=== PATIENT | female | born 1930 | race Caucasian/White ===

== ENCOUNTER 2017-02-01 18:28 | Inpatient (IN) | payer OTHER ==
[~2017-02-01] VITALS: Ht 152.4 cm; Wt 61.2 kg
--- NOTE | ~2017-02-01 | 2DMMODE ---
[facility] [address] [place] [address] 2 D/M-MODE ECHOCARDIOGRAM Name: WES HAGAN I Room #: 205-P [facility] IN .R.#: [id number] Admission: 02/01/17 Attend Phys: Ok Bolaños MD Discharge: Date of : 34 Date of Service: 02/04/17 1304 Report #: [id number] THIS REPORT FOR: //name// APPROVED REPORT Study performed: 02/04/2017 11:03:03 EXAM: Comprehensive 2D, Doppler, and color-flow Echocardiogram Patient Location: Echo lab Room #: [facility] Status: routine BSA: 1.59 HR: 62 bpm BP: 107/87 mmHg Other Information Study Quality: Adequate Indications Palpitations 2D Dimensions RVDd: 23.77 mm LVEF(%): 55.84 (>50%) IVSd: 11.50 (7-11mm) LVOT Diam: 18.08 (18-24mm) LVDd: 39.85 mm PWd: 11.84 (7-11mm) Ascending Ao: 30.09 (22-36mm) LVDs: 28.41 (25-40mm) Aortic Root: 28.68 mm IVC: 12.00 mm Martines's LVEF: 55.84 % Volumes Left Atrial Volume (Systole) Single Plane 4CH: 44.63 mL Single Plane 2CH: 61.71 mL LA ESV Index: 36.00 mL/m2 Aortic Valve AoV Peak Teofilo.: 2.77 m/s AO Peak Gr.: 30.74 mmHg LVOT Max P.69 mmHg AO Mean Gr.: 15.21 mmHg LVOT Mean P.25 mmHg AO V2 Mean: 1.82 m/s LVOT Max V: 1.08 m/s AO V2 VTI: 59.11 cm LVOT Mean V: 0.69 m/s RUFINO (VTI): 1.18 cm2 LVOT V1 VTI: 27.14 cm RUFINO Vmax: 1.00 cm2 AI Vmax: 3.94 m/s SV (LVOT): 69.65 mL AI [place]: 1.96 m/s2 [facility] [place] [address] 2 D/M-MODE ECHOCARDIOGRAM Name: HAGANWES I Room #: 205-P [facility] IN ..#: [id number] Admission: 02/01/17 Attend Phys: Ok Bolaños MD Discharge: Date of : 34 Date of Service: 02/04/17 1304 Report #: [id number] AI PHT: 584.90 ms Mitral Valve MV Peak Gr.: 13.17 mmHg MV Mean Gr.: 3.25 mmHg E/A Ratio: 0.5 MV Decel. Time: 416.80 ms MV E Max Teofilo.: 0.83 m/s MV A Teofilo.: 1.65 m/s MV Max Teofilo.: 1.81 m/s MV Mean Teofilo.: 0.80 m/s MV VTI: 455.70 mm MVA VTI: 152.84 mm2 MV PHT: 120.87 ms IVRT: 143.02 ms Pulmonary Valve PV Peak Teofilo.: 0.96 m/s PV Peak Gr.: 3.69 mmHg TX End Vmax: 0.95 m/s Pulmonary Vein P Vein S: 0.80 m/s P Vein A: 0.31 m/s P Vein D: 0.33 m/s P Vein A Dur.: 110.7 msec P Vein S/D Ratio: 2.42 Tricuspid Valve TR Peak Teofilo.: 2.68 m/s TR Peak Gr.: 28.80 mmHg PA Pressure: 34.00 mmHg Left Ventricle The left ventricle is normal size. Mild concentric left ventricular hypertrophy. The left ventricular systolic function is normal. The left ventricular ejection fraction is within the normal range. LVEF is 60-65%. Grade I - abnormal relaxation pattern. Right Ventricle The right ventricle is normal size. The right ventricular systolic function is normal. Atria Left atrium is dilated. Right atrium is at the upper limits of normal. Aortic Valve The aortic valve is normal in structure. Aortic valve is calcified. Mild aortic regurgitation. Moderate aortic stenosis.1.[address] [address] 2 D/M-MODE ECHOCARDIOGRAM Name: WES HAGAN Bessy Room #: 205-P [facility] IN M.R.#: [id number] Admission: 02/01/17 Attend Phys: Ok Bolaños MD Discharge: Date of : 34 Date of Service: 02/04/17 1304 Report #: [id number] Mitral Valve The mitral valve is normal in structure. There is mitral annular calcification. Mild mitral regurgitation. No evidence of mitral valve stenosis. Tricuspid Valve The tricuspid valve is normal in structure. There is mild tricuspid regurgitation. Estimated PAP 34 mmHg. There is mild pulmonary hypertension. Pulmonic Valve The pulmonary valve is normal in structure. Mild pulmonic regurgitation. Great Vessels The aortic root is normal in size. IVC is normal in size and collapses >50% with inspiration. Pericardium There is no pericardial effusion. <Conclusion> The left ventricle is normal size. Mild concentric left ventricular hypertrophy. LVEF is 60-65%. Grade I - abnormal relaxation pattern. The right ventricle is normal size. Left atrium is dilated. Right atrium is at the upper limits of normal. The aortic valve is normal in structure. Aortic valve is calcified. Mild aortic regurgitation. Moderate aortic stenosis.1.2 cm2 The mitral valve is normal in structure. There is mitral annular calcification. Mild mitral regurgitation. There is mild tricuspid regurgitation. Estimated PAP 34 mmHg. There is mild pulmonary hypertension. There is no pericardial effusion. <ELECTRONICALLY SIGNED> By: Bran Fleming MD, FACC 02/04/17 1304 03 130 Bran Fleming MD, FACC /INF
[2017-02-01 18:05] VITALS: BP 117/69
[~2017-02-01 18:28] MED LIST: CHLORTHALIDONE25 MG PO; COLACE100 MG PO; LEVOTHYROXINE0.05 MG PO; MILK OF MA2400 MG/10 PO; TYLENOL325 MG PO
[2017-02-01 19:30] LABS: ABSOLUTE NEUTROPHILS 3.7 thou/uL (1.4-8.2); EOSINOPHILS 1.5 % (0.0-3.0); HEMATOCRIT 40.2 % (37.0-47.0); HEMOGLOBIN 13.5 gm/dL (12.0-15.0); LYMPHOCYTES 36.4 % (24.0-44.0); MANUAL DIFF NO; MCH 30.3 pg (26.0-34.0); MCHC 33.5 g/dL (28.0-37.0); MCV 90.5 fL (80.0-100.0); MONOCYTES 7.7 % (1.0-8.0); PLATELET COUNT 186 thou/uL (150-400); POLYS 53.4 % (36.0-66.0); RBC 4.44 mil/uL (4.20-5.00); RDW 14.3 % (10.5-14.5); WBC 6.9 thou/uL (4.0-11.0)
[2017-02-01 19:46] LABS: ALBUMIN 3.4 g/dL (3.4-5.0); ALKALINE PHOSPHATASE 54 U/L (46-116); ANION GAP 1 mmol/L (7-16); BUN 16 mg/dL (7-18); CALCIUM 9.2 mg/dL (8.5-10.1); CHLORIDE 107 mmol/L (98-107); CO2 33 mmol/L (21-32); CREATININE 0.9 mg/dL (0.6-1.0); GLUCOSE 98 mg/dL (74-106); POTASSIUM 4.1 mmol/L (3.5-5.1); SGOT 43 U/L (15-37); SGPT 53 U/L (30-65); SODIUM 141 mmol/L (136-145); TOTAL BILIRUBIN 0.6 mg/dL (<0.1-1.0); TOTAL PROTEIN 6.5 g/dL (6.4-8.2)
[2017-02-01 19:56] VITALS: BP 121/70
[2017-02-01 20:09] LABS: CHOLESTEROL 241 mg/dL (<200); HDL CHOLESTEROL 59 mg/dL (>40); LDL CHOLESTEROL 141 mg/dL (<100); TC:HDL 4.1 Ratio (Not establshd); TRIGLYCERIDE 207 mg/dL (<150); VLDL 41 mg/dL (<40)
[2017-02-02 00:49] VITALS: BP 94/57
[2017-02-02 04:10] VITALS: BP 115/56
[2017-02-02 07:45] VITALS: BP 116/59
[2017-02-02 11:30] VITALS: BP 142/66
[2017-02-02 15:45] VITALS: BP 130/54
[2017-02-02 20:28] VITALS: BP 147/71
[2017-02-03 04:15] VITALS: BP 122/48
[2017-02-03 07:25] VITALS: BP 141/73
[2017-02-03 12:20] VITALS: BP 140/63; BP 142/63
[2017-02-03 16:10] VITALS: BP 127/66
[2017-02-03 19:50] VITALS: BP 147/71
[2017-02-04 05:03] VITALS: BP 168/70
[2017-02-04 07:40] VITALS: BP 107/87
[2017-02-04 12:10] VITALS: BP 153/68
[2017-02-04 15:30] VITALS: BP 156/71
[2017-02-04 19:10] VITALS: BP 129/55
[2017-02-05 03:12] LABS: ABSOLUTE NEUTROPHILS 5.3 thou/uL (1.4-8.2); BASOPHILS 0.7 % (0.0-2.0); EOSINOPHILS 2.6 % (0.0-3.0); HEMOGLOBIN 13.7 gm/dL (12.0-15.0); LYMPHOCYTES 28.6 % (24.0-44.0); MCH 30.3 pg (26.0-34.0); MCHC 33.5 g/dL (28.0-37.0); MCV 90.4 fL (80.0-100.0); MONOCYTES 8.9 % (1.0-8.0); PLATELET COUNT 184 thou/uL (150-400); POLYS 59.2 % (36.0-66.0); RBC 4.53 mil/uL (4.20-5.00); RDW 13.7 % (10.5-14.5)
[2017-02-05 03:13] LABS: MANUAL DIFF NO
[2017-02-05 03:17] LABS: CALCIUM 9.4 mg/dL (8.5-10.1); POTASSIUM 4.2 mmol/L (3.5-5.1)
[2017-02-05 03:54] VITALS: BP 131/61
[2017-02-05 07:30] VITALS: BP 130/55
[2017-02-05] MEDS ORDERED: ASA5UEC PO (09:37)
[2017-02-05] MEDS ORDERED: LOPRESSOR25 PO (09:37)
[2017-02-05 10:29] VITALS: BP 130/55
== END 2017-02-05 11:18 | disposition home or self-care (01) | DRG 281 ==
LOC: 2N 18:28 → ENTRNSPT 02-05 10:49 → EDTRNSPTSTS 02-05 10:54 → 2N 02-05 11:18
PROVIDERS: Family Medicine; Internal Medicine Endocrinology, Diabetes & Metabolism
DX: I21.4 Non-ST elevation (NSTEMI) myocardial infarction (principal); E44.1 Mild protein-calorie malnutrition; K21.9 Gastro-esophageal reflux disease without esophagitis; I10 Essential (primary) hypertension; E03.9 Hypothyroidism, unspecified; I25.10 Atherosclerotic heart disease of native coronary artery without angina pectoris; R51 Headache; T46.3X5A Adverse effect of coronary vasodilators, initial encounter; M19.90 Unspecified osteoarthritis, unspecified site; F41.9 Anxiety disorder, unspecified; R11.0 Nausea; I27.20 Pulmonary hypertension, unspecified; E11.9 Type 2 diabetes mellitus without complications; Z88.2 Allergy status to sulfonamides; Z79.899 Other long term (current) drug therapy; Z90.710 Acquired absence of both cervix and uterus; Z90.49 Acquired absence of other specified parts of digestive tract; Y92.89 Other specified places as the place of occurrence of the external cause; Z82.49 Family history of ischemic heart disease and other diseases of the circulatory system; Z83.6 Family history of other diseases of the respiratory system
CPT/HCPCS: 10081

== ENCOUNTER 2017-08-30 06:35 | Observation (INO) | payer OTHER ==
[~2017-08-30] VITALS: Ht 162.6 cm; Wt 50.4 kg
--- NOTE | ~2017-08-30 | P ---
[facility] [place] [address] PROCEDURE REPORT Name: WES HAGAN Room #: 209-P [facility] M.R.#: [id number] Admission: 08/30/17 Attend Phys: Miguel Austin MD Discharge: Date of : 34 Report #: [id number] THIS REPORT FOR: //name// CC: Joel Austin PREOPERATIVE DIAGNOSIS: Supraventricular tachycardia. POSTOPERATIVE DIAGNOSIS: Typical atrioventricular minna reentrant tachycardia. PROCEDURES PERFORMED: 1. SVT ablation, CPT code 20261. 2. EP left atrial pacing and recording, CPT code 57736. 3. 3D mapping, CPT code 20966. HISTORY: The patient is an 87-year-old who has had recurrent syncopal episodes and recently presented to outside hospital with documented supraventricular tachycardia. She is here for EP study and possible ablation. We discussed if we could not induce an arrhythmia, we would need to put in a pacemaker to start AV minna blocking agents. She and her family understood this and were willing to proceed. DESCRIPTION OF PROCEDURE: The patient was brought to the EP laboratory in a fasting and unsedated state and sedated by the Anesthesiology Service. She was prepped and draped in a sterile fashion. Next, I injected lidocaine to the bilateral groins and obtained access to the bilateral femoral veins and placed sheaths using the modified Seldinger technique. In the right femoral vein, I placed an 8 and 6-Syrian short sheath. In the left femoral vein, I placed a 6 and 7-Syrian short sheath. Next, under fluoroscopy, I placed 3 quadripolar catheters at the HRA, His, and RV positions and a decapolar catheter easily into the coronary sinus. At baseline, the patient was in sinus rhythm with a sinus cycle length of 985 milliseconds, OK interval of 226 milliseconds, QRS duration of 85 milliseconds, QT interval 420 milliseconds, AH interval of 120 milliseconds and an HV interval of 35 milliseconds. Atrial burst pacing was performed and AV block was noted at 460 milliseconds. Ventricular pacing was performed and VA conduction with both midline and decremental. AV minna ERP was noted at 400 milliseconds at a [address] cycle length. With double atrial extrastimuli, the patient went into SVT with a tachycardia cycle length of 340 milliseconds and a septal VA time of 0 milliseconds. The initial episode of SVT terminated with . This was easily reinducible with a double atrial extrastimuli and a ventricular entrainment was performed and a VAHV response was noted consistent with typical AV minna reentrant tachycardia. A 3D mapping and ablation: I exchanged my HRA catheter and sheath for a SR0 sheath and a 4 mm [employer] Parnell ablation catheter. A 3D geometry of the His bundle and slow pathway region was created. Next, ablation was performed at 50 corcoran and 55 degrees. During the first burn, there were no junctionals. During [facility] [address] [place] [address] PROCEDURE REPORT Name: WES HAGAN Room #: 209-P [facility] Missy M.RJuancarlos#: [id number] Admission: 08/30/17 Attend Phys: Miguel Austin MD Discharge: Date of : 34 Report #: [id number] the second, third and fourth liz, there were almost continuous slow junctionals. There was never any compromise to conduction. POST-ABLATION FINDINGS: Post-ablation, AV block was noted at 460 milliseconds. VA block was noted at 370 milliseconds. AV minna ERP was noted at 360 milliseconds at a [address] cycle length. We tested for a period of 30 minutes and could no longer induce AVNRT. Post-ablation, the patient was in sinus rhythm with a sinus cycle length of 885 milliseconds, OK interval 190 milliseconds, QRS duration 85 milliseconds, QT interval 380 milliseconds. As such, all catheters and sheaths were pulled. Hemostasis was obtained and the patient awoke neurologically and hemodynamically intact with no complications and no significant bleeding. CONCLUSIONS: 1. Successful ablation of typical AV minna reentrant tachycardia. 2. Normal SA minna function. 3. Normal AV minna function. 4. Normal His-Purkinje function. 5. No other inducible arrhythmias, on or off isoproterenol. By: [id number] Miguel Austin MD /nt
--- NOTE | ~2017-08-30 | D ---
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 She underwent a successful SVT ablation by Dr. Austin of the Electrophysiology Service. She is up and ambulating and in sinus rhythm and will be discharged on her home medications. Heart rate is sinus in the 70s. We will add Norvasc 5 mg at discharge. She will continue on aspirin. She is essentially taking no other medications. She has followup scheduled with Dr. Austin in 3 months. She will see Dr. Joel Mendoza in [place], [place] on Saturday and follow up. DISCHARGE DIAGNOSES: Supraventricular tachycardia status post supraventricular tachycardia ablation successful. Thank you for asking me to assist in the care of this patient. By: [id number] Bran Fleming MD, FACC /nt
[~2017-08-30 06:35] MED LIST changes: +ASA5UEC PO; +LOPRESSOR25 PO
[2017-08-30 07:24] VITALS: BP 155/71
[2017-08-30] MEDS ORDERED: XANAX 0.5 MG0.5 MG PO (07:33)
[2017-08-30] MEDS ORDERED: FOSAMAX 70 MG T70 MG PO (07:33)
[2017-08-30] MEDS ORDERED: FISH OIL 1,001000 M2 PO (07:34)
[2017-08-30 07:44] LABS: ABSOLUTE NEUTROPHILS 3.6 thou/uL (1.4-8.2); EOSINOPHILS 1.9 % (0.0-3.0); HEMATOCRIT 39.9 % (37.0-47.0); HEMOGLOBIN 13.5 gm/dL (12.0-15.0); LYMPHOCYTES 33.1 % (24.0-44.0); MCH 30.9 pg (26.0-34.0); MCHC 33.8 g/dL (28.0-37.0); MCV 91.5 fL (80.0-100.0); MONOCYTES 8.7 % (1.0-8.0); PLATELET COUNT 173 thou/uL (150-400); POLYS 55.3 % (36.0-66.0); RBC 4.36 mil/uL (4.20-5.00); RDW 14.6 % (10.5-14.5); WBC 6.6 thou/uL (4.0-11.0)
[2017-08-30 07:52] LABS: POTASSIUM 3.9 mmol/L (3.5-5.1)
[2017-08-30 07:57] LABS: ALBUMIN 3.6 g/dL (3.4-5.0); TOTAL BILIRUBIN 0.5 mg/dL (<0.1-1.0)
[2017-08-30 08:00] LABS: APTT 23.4 Seconds (24.5-32.8); PROTIME 9.7 Seconds (9.3-11.4)
[2017-08-30 12:31] VITALS: BP 163/65
[2017-08-30 16:34] VITALS: BP 145/67
[2017-08-30 20:12] VITALS: BP 140/57
[2017-08-30 23:55] VITALS: BP 114/38
[2017-08-31 03:50] VITALS: BP 127/50
[2017-08-31 05:02] VITALS: BP 155/55
[2017-08-31] MEDS ORDERED: NORVASC5 MG PO (07:20)
[2017-08-31 08:30] VITALS: BP 142/74
[2017-08-31 09:52] VITALS: BP 142/74
== END 2017-08-31 10:19 | disposition home or self-care (01) ==
LOC: CATH 06:35 → 2N 08:52
PROVIDERS: Internal Medicine Cardiovascular Disease
DX: I47.1 Supraventricular tachycardia (principal); F41.9 Anxiety disorder, unspecified; I10 Essential (primary) hypertension; E03.9 Hypothyroidism, unspecified; M19.90 Unspecified osteoarthritis, unspecified site; M81.0 Age-related osteoporosis without current pathological fracture; G62.9 Polyneuropathy, unspecified; K25.9 Gastric ulcer, unspecified as acute or chronic, without hemorrhage or perforation; Z90.49 Acquired absence of other specified parts of digestive tract; Z98.890 Other specified postprocedural states
CPT/HCPCS: 62110; 62900; 70005